=== PATIENT | male | born 1945 | race Caucasian/White ===

== ENCOUNTER 2016-08-08 21:23 | Emergency (ER) | payer OTHER ==
[~2016-08-08] VITALS: Ht 167.6 cm; Wt 71.8 kg
[~2016-08-08 21:23] MED LIST: ASPI-867 PO; CHOL200025 PO; FORMOTEROL INH; GLPZ10T PO; METF1000 PO; NIAC500SA PO; NIT3 SL; PLAVIX (*) 75 M75 MG PO; SIMVASTATIN; SIN10 PO; TOPR25T PO; ZES10 PO
[2016-08-08 21:38] VITALS: BP 159/77; PULSE 95; RESP 20; O2SAT 100
[2016-08-08 22:41] LABS: BASOPHILS % (AUTO) 1.2 % (0-3); EOSINOPHILS % (AUTO) 0.4 % (0-5); MONOCYTES % (AUTO) 12.6 % (4-12); Mean Corpuscular Hemoglobin 29.2 pg (27.0-35.0); Mean Corpuscular Volume 85.6 fL (81-100); NEUTROPHILS % (AUTO) 71.9 % (40-74); Platelet Count 243 bil/L (150-400)
[2016-08-08 23:07] LABS: TROPONIN T 0.01 ug/L (0.0-0.011)
--- NOTE | 2016-08-08 23:29 | ED.REPORT ---
HPI-Dyspnea / Wheezing Date of Service August 08, 2016 ED Provider: Erik Mejias MD A 71 year old male with a history of diabetes, stroke, OK and stent presents to the ED due to a cough. The pt has been experiencing this cough for one week. This is accompanied by sore throat, headache, weakness, weight loss, confusion ( though his attributes this to his congestion and poor hearing) and low grade fever, though the pt denies dysuria. The pt is concerned because his headache is similar to what he felt when he had a stroke previously. Nursing Notes Stated Complaint: COUGH Chief Complaint: Respiratory Complaints Nursing Notes Reviewed: Yes Allergies: Coded Allergies: Penicillins (Verified Allergy, Severe, Swelling, 06/30/12) Scheduled ([formoterol]) 12 MG INH 3XW ([Simvastatin]) 10 MG DAILY Aspirin (Miniprin) 81 Mg Tablet.dr 81 MG PO DAILY Azithromycin (Zithromax (Z-Aquiles)) 250 Mg Tablet 250 MG PO DIRECTED Take two tablets by mouth on day 1, then take one tablet daily on days 2 through 5. Cholecalciferol-Expunged Drug, Do Not Renew! (Vitamin D3-Expunged Drug, Do Not Renew!) 2,000 Unit Tablet 2,000 UNIT PO DAILY Clopidogrel-Expunged Drug, Do Not Renew! (Plavix-Expunged Drug, Do Not Renew!) 75 Mg Tablet 75 MG PO DAILY Lisinopril-Expunged Drug, Do Not Renew! (Lisinopril-Expunged Drug, Do Not Renew! ) 10 Mg Tablet 10 MG PO DAILY Metformin-Expunged Drug, Do Not Renew! (Metformin-Expunged Drug, Do Not Renew!) 1,000 Mg Tablet 1,000 MG PO BIDWM Take mid meal to avoid diarrhea Metoprolol Suc-Expunged Drug, Do Not Renew! (Metoprolol Suc-Expunged Drug, Do Not Renew!) 25 Mg Tber 25 MG PO BID Montelukast-Expunged Drug, Do Not Renew! (Singulair-Expunged Drug, Do Not Renew! ) 10 Mg Tablet 10 MG PO HS Niacin-Expunged Drug, Do Not Renew! (Niaspan-Expunged Drug, Do Not Renew!) 500 Mg Tablet.er 500 MG PO DAILY TAKE WITH FOOD Nitroglycerin 0.3 MG Tab.SL (NitroStat 0.3 MG Tab.SL) 0.3 Mg Subl 0.3 MG SL Q5MINP glipiZIDE-Expunged Drug, Do Not Renew! (glipiZIDE-Expunged Drug, Do Not Renew!) 10 Mg Tablet 10 MG PO BID General Time Seen by MD: 23:29 Chief Complaint Cough Hx Obtained From: Patient Arrived By: Walk-in Sudden in Onset?: No Onset Occurred: 1 week ago Symptom Duration: Since onset Recent Healthcare: No recent doctor visit, No recent hospitalization Similar Sx Previous: No Past Medical History Past Medical History cataracts hypertension asthma, resolved diabetes Past Surgical History stent 2006 Reports: Appendectomy, Cholecystectomy Smoking History Former Smoker (quit 1971) Social History Alcohol Use: Denies alcohol use (quit 1971) Ambulatory Status Independent Review of Systems Constitutional: Reports: Recent wt loss, Weakness - generalized, Denies: Fever Ears / Nose / Throat: Reports: Sore throat Respiratory: Reports: Non-productive cough Complete sys rev & neg: except as marked. Male: Denies Dysuria Neurologic: Reports: Headache Psychiatric: Reports: Confusion Physical Exam Initial Vital Signs Vital Signs (First) Date Time Temp Pulse Resp B/P Pulse Ox O2 Delivery O2 Flow Rate FiO2 08/08/16 21:38 36.2 95 20 159/77 100 Room Air Initial VS: Reviewed General/Constitutional: Awake, Alert Neck: Atraumatic, Supple, Full range of motion Respiratory / Chest: Atraumatic, Breath sounds NL, Breath sounds = bilat, No respiratory distress Cardiovascular: Regular rhythm, Heart sounds NL Heart Rate / Rhythm: Positive: Tachycardia ENT: Atraumatic, Airway patent, Mucous membranes moist Abdomen: Atraumatic, Soft, Non-tender Back: Atraumatic, Full range of motion Lower Extremity / Pelvis / MS: Atraumatic, Full range of motion Skin: Atraumatic, Color NL, No rash, Warm, Dry Neurologic: Oriented X3, Speech NL, No motor deficits, No sensory deficits Head / Eyes: Atraumatic, Normocephalic, PERRL, EOMI Upper Extremity / MS: Atraumatic, Full range of motion Psychiatric: Affect NL, Mood NL Interpretation & Diagnostics Lab Results Interpretation Result Diagram: 08/08/16222908/08/162229 Test 08/08/16 22:30 White Blood Count 16.1th/mm3 (3.8-10.1) Red Blood Count 4.73mil/mm3 (4.40-5.80) Hemoglobin 13.8g/dL (13.8-17.2) Hematocrit 40.5% (41.0-50.0) Mean Corpuscular Volume 85.6fL (81-100) Mean Corpuscular Hemoglobin 29.2pg (27.0-35.0) Mean Corpuscular Hemoglobin Concent 34.1% (32.0-37.0) Red Cell Distribution Width 12.4% (12.3-15.4) Platelet Count 243bil/L (150-400) Neutrophils (%) (Auto) 71.9% (40-74) Lymphocytes (%) (Auto) 13.4% (14-46) Monocytes (%) (Auto) 12.6% (4-12) Eosinophils (%) (Auto) 0.4% (0-5) Basophils (%) (Auto) 1.2% (0-3) Sodium Level 132mEq/L (134-144) Potassium Level 4.6mEq/L (3.5-5.2) Chloride Level 94mEq/L (97-108) Carbon Dioxide Level 21mmol/L (18-29) Blood Urea Nitrogen 15mg/dL (8-27) Creatinine 0.69mg/dL (0.76-1.27) Estimat Glomerular Filtration Rate 119mL/min (>59) Glucose Level 324mg/dL (60-99) Calcium Level 9.6mg/dL (8.5-10.1) Total Bilirubin 0.6mg/dL (0.0-1.2) Aspartate Amino Transf (AST/SGOT) 9U/L (0-50) Alanine Aminotransferase (ALT/SGPT) 8U/L (0-44) Alkaline Phosphatase 102U/L (25-160) Troponin T 0.010ug/L (0.0-0.011) Pro-B-Type Natriuretic Peptide 85.66pg/mL (0-376) Total Protein 7.3g/dL (6.4-8.4) Albumin 3.8g/dL (3.4-5.0) Hold Horton Top Tube Received (Received) X-Ray Chest Interpretation Chest Xray Interpretation: no acute disease Interpretation / Wet Read by: Wet read ED physician Re-Eval/Medical Decision Med Decision/Clinical Course I do not believe the patient is clinically confused. Curb 65 give him a score of 1. Outpatient therapy should be reasonable. Patient and his are comfortable with this plan. Source of Hx: Old records Counseled Regarding: Diagnosis, Lab results, Need for follow-up, When/why to return to ED Discharge & Departure Impression: Primary Impression: Community acquired pneumonia Disposition: Home Discharge Condition All VS Reviewed: Yes Condition: Stable Patient Instructions: Community Acquired Pneumonia (ED) Additional Instructions: Take azithromycin once daily. Drink lots of fluid. Follow-up at the clinic in 2 or 3 days if not significantly improved, sooner of worse. Referrals: Kyler Box MD (PCP) Steveibjackson Attestation Portions of this note were transcribed by Micaela Worthington. I, Dr. Mejias personally performed the history, physical exam and medical decision-making; I reviewed and confirmed the accuracy of the information in the transcribed note. Signed by: Robin Lyn, 08/08/16 and [id number]. copies to: Kyler Box MD, Kirk H MD August 08, 2016 23:29 MICAELA WORTHINGTON August 08, 2016 23:41
[2016-08-08 23:41] VITALS: BP 138/58; PULSE 100; RESP 22; O2SAT 95
[2016-08-08] MEDS ORDERED: AZIT250T4 PO (23:53)
[2016-08-09 00:04] VITALS: BP 139/83; PULSE 108; RESP 24; O2SAT 96
[2016-08-09 00:09] VITALS: BP 139/83; PULSE 108; O2SAT 96
--- NOTE | 2016-08-09 07:28 | DRSVH ---
PROCEDURE: X-RAY CHEST ONE VIEW, PORTABLE ([id number]) INDICATIONS: CHEST PAIN TECHNIQUE: One view of the chest was acquired. COMPARISON: None. FINDINGS: Surgical changes and devices: None. Lungs and pleura: No pleural effusions or pneumothorax. Left lower lung scarring. Lungs are otherwi se clear. Mediastinum: Mediastinal contours appear normal. Heart size is normal. Bones and chest wall: No suspicious bony lesions. Overlying soft tissues appear unremarkable. IMPRESSION: No acute process. Concordant with preliminary interpretation. Dictated by: Crystal Lopes M.D. on 08/09/2016 at 7:26 Approved by: Crystal Lopes M.D. on 08/09/2016 at 7:27
== END 2016-08-09 00:09 | disposition home or self-care (01) ==
LOC: SED 21:23
DX: J18.9 Pneumonia, unspecified organism (principal); E11.9 Type 2 diabetes mellitus without complications; I25.2 Old myocardial infarction; I10 Essential (primary) hypertension; Z86.73 Personal history of transient ischemic attack (TIA), and cerebral infarction without residual deficits; Z95.818 Presence of other cardiac implants and grafts; Z87.891 Personal history of nicotine dependence; Z79.82 Long term (current) use of aspirin; Z79.84 Long term (current) use of oral hypoglycemic drugs; Z88.0 Allergy status to penicillin